=== PATIENT | female | born 1985 | race African-American/Black ===

== ENCOUNTER 2018-07-20 03:35 | Emergency (ER) | payer BC, OTHER ==
[2018-07-20] MEDS ORDERED: Ibuprofen 800 MG TAB ONE (04:15)
--- NOTE | 2018-07-20 08:31 | RAD ---
RIGHT ANKLE 3 VIEWS: Date; 07/20/18 HISTORY: Injury. COMPARISON: None. FINDINGS: The ankle mortise is congruent. There is moderate bimalleolar soft tissue swelling. No acute displace d fracture or malalignment. IMPRESSION: Mild bimalleolar swelling suggesting ankle sprain. No acute fracture. POS: CET
== END 2018-07-20 04:35 | disposition home or self-care (01) ==
LOC: NAV ERS 03:35
DX: S93.401A Sprain of unspecified ligament of right ankle, initial encounter (principal); F41.9 Anxiety disorder, unspecified; X50.9XXA Other and unspecified overexertion or strenuous movements or postures, initial encounter

== ENCOUNTER 2021-05-29 02:17 | Emergency (ER) | payer BC, OTHER ==
[2021-05-29] MEDS ORDERED: Mag-Al Plus 1200 MG/1200 MG/120 MG/30 ML UDCUP ONE (02:45)
[2021-05-29 03:05] LABS: #Eosinphils 0.1 thou/uL (0.0-0.7); #Lymphocytes 2.2 thou/uL (1.20-3.40); #Monocytes 0.4 thou/uL (0.11-0.59); #Neutrophils 4.2 thou/uL (1.40-6.50); %Basophils 0.5 % (0.0-1.0); %Lymphocytes 32.5 % (21.0-51.0); %Monocytes 5.3 % (0.0-10.0); %Neutrophils 60.6 % (42.0-75.0); Hemoglobin 11.7 g/dL (12.0-16.0); Mean Corpuscular HGB CONC 31.9 g/dL (32.0-36.0); Mean Corpuscular Volume 97.1 fL (78.0-98.0); Mean Platelet Volume 8.2 fL (7.4-10.4); Platelet Count 289 thou/uL (130-400); RBC Distribution Width 12.5 % (11.5-14.5); Red Blood Cell (RBC) Count 3.77 mill/uL (4.20-5.40); White Blood Cell (WBC) Count 6.9 thou/uL (4.8-10.8)
[2021-05-29 03:15] LABS: ALT (SGPT) 11 U/L (8-55); AST (SGOT) 14 U/L (5-34); Albumin 3.6 g/dL (3.5-5.0); Alkaline Phosphatase 46 U/L (40-110); Anion Gap 13 mmol/L (10-20); BUN (Urea Nitrogen) 17 mg/dL (7.0-18.7); Bilirubin, Total 0.2 mg/dL (0.2-1.2); Calc. Creatinine Clearance 0 mL/min (70-130); Calcium 9.1 mg/dL (7.8-10.44); Carbon Dioxide 23 mmol/L (22-29); Chloride 106 mmol/L (98-107); Globulin 4.1 g/dL (2.4-3.5); Glucose 95 mg/dL (70-105); Potassium 3.7 mmol/L (3.5-5.1); Protein, Total 7.7 g/dL (6.0-8.3); Sodium 138 mmol/L (136-145)
== END 2021-05-29 04:00 | disposition home or self-care (01) ==
LOC: NAV ERS 02:17
DX: R07.9 Chest pain, unspecified (principal)
CPT/HCPCS: 80053; 84484; 85025; 93005